=== PATIENT | male | born 1980 | race Caucasian/White ===

== ENCOUNTER 2022-12-23 15:20 | Outpatient (CLI) | payer OTHER, SELFPAY ==
--- NOTE | 2022-12-23 | US_ITS ---
WS: [id number] ULTRASOUND PELVIS LIMITED INDICATION: LEFT inguinal hernia TECHNIQUE: Ultrasound LEFT inguinal canal FINDINGS: Ultrasound LEFT inguinal canal area of concern. LEFT inguinal hernia in the area of concern with herniating bowel during Valsalva. This reduces when patient relaxes. No evidence of obstruction . Hernia neck measures approximately 7.7 mm. US/US pelvic limited [id number] IMPRESSION: LEFT inguinal hernia in the area of concern with herniating bowel d uring Valsalva. No obstruction.
== END 2022-12-23 15:21 | disposition home or self-care (01) ==
LOC: RAD 15:30
PROVIDERS: Family Provider Nurse Practitioner; Visit Provider Nurse Practitioner Family
DX: K43.2 Incisional hernia without obstruction or gangrene (principal)
CPT/HCPCS: 76857

== ENCOUNTER 2023-03-17 05:42 | Day surgery (SDC) | payer OTHER, SELFPAY ==
[2023-03-14 09:50] VITALS: BMI 25.0
[2023-03-17] VITALS (8 sets, daily range): BP systolic 120–159; BP diastolic 75–94; PULSE 57–83; RESP 16–23; TEMP 36.9–37.3; O2SAT 95–100
[2023-03-17] MEDS: sodium chloride 0.9% 1,000 ML 30 ML IV (06:35)
--- NOTE | 2023-03-17 06:52 | ANES.PREANE2 ---
Pre-Anesthetic Assessment Height/Weight: Height 1.85 m Weight 86.183 kg Temp Pulse Resp BP Pulse Ox O2 Del Method 98.7 F 76 16 134/94 97 Room Air 03/17/23 06:07 03/17/23 06:07 03/17/23 06:07 03/17/23 06:07 03/17/23 06:07 03/17/23 06:07 Operation Date: 03/17/23 07:00 Proposed Procedures p Laparoscopic Inguinal Hernia Repair(Left) - Jonh Stoddard DO Was Beta Sp taken within 24 hours: N/A Was Clonidine taken within 24 hours: N/A Last intake: Intake Last Liquid Date 03/16/23 Last Liquid Time 23:00 Last Solid Date 03/16/23 Last Solid Time 22:00 Social No tobacco Exam alert, oriented x 3, clear to auscultation bilaterally and regular rate & rhythm Airway Submandibular: within normal limits Cervical ROM: within normal limits Mallampati: Class II History/ROS No significant history except as noted and No significant complaints Anesthetic Plan ASA status: 1 Anesthesia: General Risk of > 500 ml blood loss (7ml/kg in children): No Medications/Allergies Home Medications Medication Instructions Recorded Confirmed Last Taken Type No Known Home Medications 01/14/23 03/17/23 Unknown History Allergies Allergy/AdvReac Type Severity Reaction Status Date / Time No Known Allergies Allergy Verified 03/14/23 09:49 Current Medications Generic Name Dose Route Start Last Admin Trade Name Freq PRN Reason Stop Dose Admin Sodium Chloride 1,000 mls @ 30 mls/hr 03/17/23 06:00 03/17/23 06:35 Sodium Chloride 0.9% IV 03/18/23 05:59 30 mls/hr .Q24H RAI Administration PFSH Anesthesia Social History Smoking and tobacco status: never smoked Alcohol intake: never Data Anesthesia Cardiac Studies: No Data to Display
--- NOTE | 2023-03-17 06:53 | PM.HP ---
Providers/Chief Complaint Primary Care Provider: Maribel Franz NP Chief Complaint: 68669 K40.90 History of Present Illness Bereket Garay is a 43 year old male Review of Systems General: Reports: 10 or more systems reviewed and unremarkable except in HPI and below Medications/Allergies Home Medications Medication Instructions Recorded Confirmed Last Taken Type No Known Home Medications 01/14/23 03/17/23 Unknown History Allergies Allergy/AdvReac Type Severity Reaction Status Date / Time No Known Allergies Allergy Verified 03/14/23 09:49 PFSH Acute PFSH: Social History Smoking and tobacco status: never smoked Alcohol intake: never Vitals/I&O/Wt Last Vital Signs Temp 98.7 F 03/17/23 06:07 Pulse 76 03/17/23 06:07 Resp 16 03/17/23 06:07 BP 134/94 03/17/23 06:07 Pulse Ox 97 03/17/23 06:07 O2 Del Method Room Air 03/17/23 06:07 A&P Assessment and plan (1) Reducible left inguinal hernia: Plan Laparoscopic repair of left inguinal hernia with mesh Attestations Medical Necessity Statement*: home Coding Level of Care Code Acute Code for Chg Fwd Diagnoses Reducible left inguinal hernia K40.90
[2023-03-17] MEDS: ceFAZolin 2,000 MG in sodium chloride 0.9% (plus) 50 ML 100 MG IV (07:04)
[2023-03-17] MEDS: lidocaine-epi 2% 20 mL INJ INJECTION (07:39)
--- NOTE | 2023-03-17 07:51 | P.OP_ITS ---
Operative Report Date of procedure: March 17, 2023 Pre-op diagnosis: Left inguinal hernia Post-op diagnosis: Pantaloon left inguinal hernia Procedure done: Laparoscopic (TEPP) repair of left inguinal hernia with mesh Implants: Extra-large left 3D max Bard mesh Specimens removed/disposition: None Surgeon: John tSoddard DO Anesthesia: General Estimated blood loss (mL): 5 Complications: None apparent Brief History: This is a very pleasant 43-year-old gentleman who was found to have a left inguinal hernia. Laparoscopic repair with mesh was indicated. The risk benefits were explained and documented. Procedure: Patient was wheeled into the operative room and placed on the OR table in a supine position. Abdomen was inspected prepped and draped in usual sterile fashion. Time-out was performed and all present were in agreement. A 15 blade scalpel was used to make 1.2 centimeter incision infraumbilically. Combination of sharp and blunt dissection was performed down to the anterior rectus sheath which was opened sharply. The dissecting balloon was then inserted into the space of Retzius and blown up. We put the camera into the port and identified that we were in the correct space. I then placed 2 5 millimeter trocars s uprapubically in the midline. I then used endokitners to bluntly dissect in the space of Retzius out laterally. A pantaloon left inguinal hernia was identified.. Blunt dissection was performed to dissect down the direct inguinal hernia sac and the indirect inguinal hernia sac until the vas deferens dove medially. An extra-large left inguinal mesh was then placed into the space of Retzius. The mesh was unrolled and tacked once medially at the pubic bone. The mesh laid out nicely over the spermatic cord. I watched the hernia sac remained in place as insufflation was removed. Incisions were closed with 4-0 Monocryl in a subcuticular interrupted fashion. Skin glue was applied. Patient tolerated the procedure well.
--- NOTE | 2023-03-17 15:23 | ANE.PACU2 ---
Inpatient post-anesthesia follow up: Airway intact: Yes Vital signs: Temperature 98.4 F Pulse Rate 60 Respiratory Rate 18 Blood Pressure 127/79 Pulse Oximetry 95 Oxygen Delivery Me thod Room Air Oxygen Flow Rate 7 Fraction of Inspir ed Oxygen Hydration adequate: Yes Nausea and vomiting: No Pain level: 3 Mental status: Baseline
== END 2023-03-17 09:05 | disposition home or self-care (01) ==
PROVIDERS: PCP Nurse Practitioner Family; Visit Provider Surgery
PROC: (CPT 49650; principal; 2023-03-17 07:00)
DX: K40.90 Unilateral inguinal hernia, without obstruction or gangrene, not specified as recurrent (principal)
CPT/HCPCS: 49650; 51702; J0690; J1885; J2250; J2405; J2704; J2710; J3010; J3490; J7030